=== PATIENT | male | born 2000 | race Two or more races ===

== ENCOUNTER 2022-08-11 23:54 | Emergency (ER) | payer BC, SELFPAY ==
[2022-08-11 23:57] VITALS: BP 132/80; PULSE 101; RESP 16; TEMP 36.9; O2SAT 95; BMI 36.6
--- NOTE | 2022-08-12 00:06 | XR_ITS ---
PROCEDURE INFORMATION: Exam: XR Right Ankle Exam date and time: 08/12/2022 12:06 AM Age: 21 years old Clinical indication: Injury or trauma; Fall; Blunt trauma; Foot; Right TECHNIQUE: Imaging protocol: Radiologic exam of the Right ankle. Views: 3 or more views. COMPARISON: No relevant prior studies available. FINDINGS: Bones/joints: The ankle mortise intact and symmetric. There is a comminuted fracture of the mid to distal 5th metatarsal shaft. The talar dome is intact. Soft tissues: There is significant lateral soft tissue swelling. IMPRESSION: 1. Comminuted fracture of the mid to distal right 5th metatarsal shaft. This is incompletely evaluated on this exam. 2. Significant lateral soft tissue swelling of the ankle.
--- NOTE | 2022-08-12 00:10 | HMH.EDLOEX ---
Discharge Plan Disposition Chief Complaint: Extremity Injury, Lower Referrals Follow up/Referrals: Hugo Simmons JR, MD [Physician] - See instructions Elias Gasca DO [Staff Physician] - See instructions Ghislaine Boothe DPM [Staff Physician] - See instructions Clinical Impressions Clinical Impression: Ankle sprain and strain, Foot fracture, right Instructions Patient Instructions: DI for Foot Fracture, DI for Ankle Sprain Discharge ED Provider: Craig Foley Lower Extremity Injury HPI General Chief Complaint: Extremity Injury, Lower Stated Complaint: AO 08/11/222299 Injury Rightr Ankle Time Seen by Provider: 08/12/22 00:10 Mode of Arrival: Wheelchair Source of Information: Patient, Significant Other and Medical Record Limitations: No Limitations Description of Symptoms (Recalled from ER Triage Doc. by RN): pt states was walked down stairs and fell landing on rt ankle. pt c/o rt ankle pain History of Present Illness HPI Narrative: acute rt ankle injury with pain and swelling complaint: ankle injury Onset (ago): hour(s) Injury: Right: ankle and foot Type of Injury: unknown Place: home Severity: moderate Context: walking Associated symptoms: snap/pop sensation, swelling and unable to bear weight Other symptoms: none Treatments prior to arrival: cold therapy Related Data Allergies Allergy/AdvReac Type Severity Reaction Status Date / Time No Known Allergies Allergy Verified 08/12/22 00:06 [facility] Social History Smoking Status: Never smoker alcohol intake: never current occupational status: employed Travel in the last 8 weeks: None ROS Obtained: Yes All systems reviewed & no additional complaints except as documented Physical Exam General General appearance: alert Head Head exam: normocephalic Eye Eye exam: Present PERRL and EOMI ENT ENT exam: Present mucous membranes moist Neck Neck exam: Present trachea midline Respiratory Respiratory exam: Absent respiratory distress Cardiovascular Cardiovascular exam: Present regular rate Abdominal Exam Abdominal exam: Present soft Expanded Lower Extremity Exam Right: Ankle exam: Present tenderness and swelling; Absent full ROM Foot/toe exam: Present tenderness, swelling and tenderness at base of 5th metatarsal; Absent full ROM Neurovascular/Tendon exam: Absent pulse deficit or motor deficit Neurological Exam Neurological exam: Present alert, oriented X3 and CN II-XII intact Skin Skin exam: Absent rash Medical Decision Making Medical Records Medical records reviewed: Yes I reviewed the patient's medical records. [place] Inquiry Pt receiving controlled substance: No Vital Signs: 08/11/22 23:57 Temperature 98.5 F Temperature Source Oral Pulse Rate [Right] 101 H Respiratory Rate 16 Blood Pressure [Right Arm] 132/80 Blood Pressure Mean [Right Arm] 97 02 Sat by Pulse Oximetry 95 Lab Data Lab results reviewed: Yes I reviewed the patient's lab results. Orders (Tests/Meds): ED MEDICATIONS Discontinued Medications Generic Name Dose Route Start Last Admin Trade Name Freq PRN Reason Stop Dose Admin Miscellaneous 1 each 08/12/22 00:30 Vancomycin Consult Request NOTAPPLIC 09/11/22 00:29 [facility] ORDERS Category Date Time Status Ankle XR -Right minimum 3 Views [XR ankle RT min 3V] Exams 08/12/22 00:06 Taken Stat Foot XR right minimum 3 views [XR foot RT min 3V] Stat Exams 08/12/22 00:19 Taken Radiology Data #1: Image(s): Ankle and Foot/Toes Image Reviewed: Yes I have reviewed radiologist's interpretation Preliminary Findings: Abnormal Medical Decision Narrative: has acute rt foot fx and ankle sts and will splint and refer to ortho and podiatry Critical Care Time Critical Care Time Critical Care Time: No Attestation: On , the high probability of a clinically significant, sudden or life threatening deterioration of the following syste
--- NOTE | 2022-08-12 00:19 | XR_ITS ---
PROCEDURE INFORMATION: Exam: XR Right Foot Exam date and time: 08/12/2022 12:14 AM Age: 21 years old Clinical indication: Injury or trauma; Fall; Blunt trauma; Foot; Right TECHNIQUE: Imaging protocol: Radiologic exam of the Right foot. Views: 3 or more views. COMPARISON: CR XR ANKLE RT MIN 3V 08/12/2022 12:06 AM FINDINGS: Bones/joints: There is an oblique comminuted fracture of the mid to distal 5th metatarsal shaft. There is approximately 1/4 to 1/2 shaft width medial displacement of the distal fragment. There is no significant angulation. The MTP joint is intact. The remainder of the osseous structures are normally aligned and intact. Soft tissues: Lateral soft tissue swelling of the is noted. Anterolateral soft tissue swelling of the ankle are noted as well. IMPRESSION: Comminuted oblique fracture of the mid to distal right 5th metatarsal shaft with approximately 1/4 to 1/2 shaft width medial displacement of the distal fragment.
[2022-08-12 00:54] VITALS: BP 129/81; PULSE 90; RESP 16; TEMP 36.9; O2SAT 95
== END 2022-08-12 01:01 | disposition home or self-care (01) ==
PROVIDERS: Emergency Provider Emergency Medicine
DX: S92.351A Displaced fracture of fifth metatarsal bone, right foot, initial encounter for closed fracture (principal); W10.8XXA Fall (on) (from) other stairs and steps, initial encounter
CPT/HCPCS: 29405; 73610; 73630; 99284

== ENCOUNTER 2022-08-12 11:34 | Emergency (ER) | payer BC, SELFPAY ==
[2022-08-12 11:36] VITALS: BP 169/117; PULSE 89; RESP 20; TEMP 36.8; O2SAT 99; BMI 36.6
--- NOTE | 2022-08-12 11:45 | PC.NURSE ---
R foot propped on pillow, placed ice pack on foot for comfort. Pt reported ice pack was making pain worse, ice pack removed. Foot still elevated on pillow.
--- NOTE | 2022-08-12 12:03 | PC.NURSE ---
ER notified of pt presenting s/s.
--- NOTE | 2022-08-12 12:27 | PC.NURSE ---
JULIETA FRIEDMAN at
[2022-08-12 12:30] VITALS: BP 136/68; PULSE 98; RESP 20; O2SAT 97
--- NOTE | 2022-08-12 12:30 | HMH.EDGENADL ---
Discharge Plan Disposition Patient Disposition: Home, Self-Care Condition: Good Prescriptions Prescriptions: New oxycodone-acetaminophen [Percocet] 7.5-325 mg tablet 1 tab PO Q6H PRN (Reason: pain) Qty: 10 0RF Referrals Follow up/Referrals: Provider,Referral, [Primary Care Provider] - See instructions Activity Restrictions/Add. Instructions Additional Instructions/Restrictions: Ice and elevate as needed for discomfort. Clinical Impressions Clinical Impression: Foot fracture, right, Ankle sprain and strain Stand Alone Forms Stand Alone Forms: Work/School Release Discharge ED Provider: Henok [facility] HPI General Chief complaint: PAIN Stated complaint: RT foot broken 08/11/22, Toes turning purple Time Seen by Provider: 08/12/22 12:26 Mode of Arrival: Wheelchair Source of Information: Patient Limitations: No Limitations Description of Symptoms (Recalled from ER Triage Doc. by RN): Pt c/o increased pain to R foot/ankle. Pt reports was home for approx 1.5 hours states pain had gotten worse, signifcant other states she called back up to ER states staff told her to remove the splint. pt reports can not get comfortable, pt c/o spasming in foot/ankle. +pulses, cap refill wnl. Moderate swelling noted to ankle. History of Present Illness HPI narrative: Patient presents complaining of right foot pain and ankle pain. He was seen here last night and diagnosed with a metatarsal fracture. He states he took the pain medicine that was prescribed and without relief. He states the pain is worse with movement. He denies numbness to the foot. Related Data Previous Rx's Medication Instructions Recorded oxycodone-acetaminophen 7.5 mg-325 1 tab PO Q6H PRN pain #10 tabs 08/12/22 mg tablet (Percocet) Allergies Allergy/AdvReac Type Severity Reaction Status Date / Time No Known Allergies Allergy Verified 08/12/22 00:06 [facility] Social History Smoking Status: Never smoker alcohol intake: never current occupational status: employed Travel in the last 8 weeks: None ROS Obtained: Yes All systems reviewed & no additional complaints except as documented Physical Exam General General appearance: alert and in no apparent distress Head Head exam: atraumatic, normocephalic and normal inspection Eye Eye exam: Present normal appearance, PERRL and EOMI ENT ENT exam: Present normal exam, normal oropharynx, mucous membranes moist, TM's normal bilaterally and normal external ear exam Neck Neck exam: Present normal inspection, full ROM and trachea midline; Absent meningismus or lymphadenopathy Chest Chest inspection: Present normal inspection and symmetric chest wall rise; Absent tenderness Respiratory Respiratory exam: Present normal lung sounds bilaterally; Absent respiratory distress Cardiovascular Cardiovascular exam: Present regular rate and normal rhythm; Absent JVD Abdominal Exam Abdominal exam: Present soft and normal bowel sounds; Absent distention, tenderness or guarding Extremities Exam Extremities exam: Present normal inspection, full ROM and normal capillary refill; Absent calf tenderness Back Exam Back exam: Present normal inspection; Absent tenderness Neurological Exam Neurological exam: Present alert and oriented X3 Psychiatric Psychiatric exam: Present normal affect and normal mood Skin Skin exam: Present warm, dry, intact and normal color Lymphatic Lymphatic Findings: no adenopathy Medical Decision Making Medical Records Medical records reviewed: Yes I reviewed the patient's medical records. [place] Inquiry Pt receiving controlled substance: Yes [place] was queried for this patient: Yes Risks and benefits of using a controlled substance: were discussed with pt by me Vital Signs: 08/12/22 11:36 08/12/22 12:30 08/12/22 14:09 Temperature 98.2 F 97.9 F Temperature Source Oral Oral Pulse Rate 98 H 89 Pulse Rate [Right
--- NOTE | 2022-08-12 12:44 | PC.NURSE ---
pt reports medication helping pain, call light within reach, significant other at BS
--- NOTE | 2022-08-12 13:13 | PC.NURSE ---
Ortho plumbing engineering draftsperson paged.
--- NOTE | 2022-08-12 13:17 | PC.NURSE ---
JULIETA FRIEDMAN spoke with Dr. Simmons for ortho at this time
[2022-08-12 13:23] VITALS: BP 109/85; PULSE 78; O2SAT 95
[2022-08-12 13:31] VITALS: BP 139/77; PULSE 80; O2SAT 97
[2022-08-12 13:50] VITALS: BP 147/101; PULSE 81; O2SAT 98
[2022-08-12 14:09] VITALS: BP 147/101; PULSE 89; RESP 20; TEMP 36.6; O2SAT 97
== END 2022-08-12 14:12 | disposition home or self-care (01) ==
PROVIDERS: Emergency Provider Emergency Medicine
DX: S92.301A Fracture of unspecified metatarsal bone(s), right foot, initial encounter for closed fracture (principal); S93.401A Sprain of unspecified ligament of right ankle, initial encounter; M62.838 Other muscle spasm; Z79.1 Long term (current) use of non-steroidal anti-inflammatories (NSAID); Z79.899 Other long term (current) drug therapy
CPT/HCPCS: 96374; 96375; 96376; 99284

== ENCOUNTER → 2022-08-30 09:43 | Outpatient (CLI) | payer BC, SELFPAY ==
--- NOTE | 2022-08-30 09:46 | XR_ITS ---
FINAL REPORT CLINICAL HISTORY: fracture FINDINGS: RIGHT FOOT Three views of the right foot were obtained. There is comminuted fracture of the mid and distal 5th metatarsal with 5 mm of medial displacement of the fracture fragments. No other fracture identified. The joint spaces are preserved. The soft tissues are unremarkable. IMPRESSION: Comminuted fracture of the mid and distal 5th metatarsal. Reviewed, Interpreted and Dictated by Angelito Carnes III, MD Transcribed by Lydia Reyes Authenticated and [facility]
== END ==
PROVIDERS: Visit Provider Orthopaedic Surgery
DX: S92.901A Unspecified fracture of right foot, initial encounter for closed fracture (principal)
CPT/HCPCS: 73630

== ENCOUNTER → 2022-10-09 09:06 | Outpatient (CLI) | payer BC, SELFPAY ==
--- NOTE | 2022-10-09 09:16 | XR_ITS ---
FINAL REPORT CLINICAL HISTORY: foot fx..fall off porch on thanksgiving..shielded COMPARISON: 08/30/2022 FINDINGS: Right foot Three views were obtained. There is a mildly displaced comminuted fracture of the distal 5th metatarsal. Displacement is similar to previous. No bony healing is identified. IMPRESSION: Fracture of the distal 5th metatarsal without evidence of bony healing. Reviewed, Interpreted and Dictated by Martín Patterson MD Transcribed by Alison Lao Authenticated and [facility]
== END ==
LOC: RAD 09:07
PROVIDERS: Visit Provider Orthopaedic Surgery
DX: S92.351A Displaced fracture of fifth metatarsal bone, right foot, initial encounter for closed fracture (principal)
CPT/HCPCS: 73630